=== PATIENT | female | born 1960 | race Native Hawaiian/Other Pacific Islander ===

== ENCOUNTER 2017-08-05 10:47 | Day surgery (SDC) | payer OTHER ==
[2017-08-03 11:01] VITALS: BMI 31.7
[~2017-08-05 10:47] MED LIST: LACTATED RINGERS 1,000 ML IV SCH
[2017-08-05 11:34] VITALS: TEMP 97.5
[2017-08-05] MEDS ORDERED: LIDOCAINE 1% 20 ML VIAL (10MG/ML) FOR IV START INTRADERMA ONE (12:11)
[2017-08-05] MEDS ORDERED: GLYCOPYRROLATE 0.2 MG/ML 2 ML VIAL ONE (12:27)
[2017-08-05] MEDS ORDERED: PROPOFOL 10 MG/ML 20 ML VIAL IV ONE (12:27)
[2017-08-05] MEDS ORDERED: MIDAZOLAM 2 MG/2 ML VIAL ONE (12:27)
[2017-08-05] MEDS ORDERED: LIDOCAINE 1% INJ 10MG/ML (20 ML MDV) ONE (12:27)
--- NOTE | 2017-08-05 12:36 | P.GSHP ---
History of Present Illness H&P Date: 08/05/17 Chief Complaint: GERD, screening colonoscopy This is a 56-year-old female referred from Za Lopez PA-C. Patient presents today for EGD and screening colonoscopy. She's had issues with GERD. Past Medical History Past Medical History: GERD/Reflux, Hypertension, Neurologic Disorder Additional Past Medical History / Comment(s): SEASONAL ALLERGIES. MIGRAINES. SINUS PROBLEMS History of Any Multi-Drug Resistant Organisms: None Reported Past Surgical History: Section, Cholecystectomy, Hysterectomy, Tonsillectomy Additional Past Surgical History / Comment(s): TEAR DUCT SX. RT EYE SX AGE 11. COLONOSCOPY Past Anesthesia/Blood Transfusion Reactions: Motion Sickness, Postoperative Nausea & Vomiting (PONV) Smoking Status: Former smoker - Past Family History Sister(s) Family Medical History: Cancer Medications and Allergies Home Medications Medication Instructions Recorded Confirmed Type Biotin 10,000 mcg PO DAILY 08/03/17 08/05/17 History Black Cohosh 540 mg PO DAILY 08/03/17 08/05/17 History Cetirizine HCl [Zyrtec] 10 mg PO DAILY 08/03/17 08/05/17 History Cholecalciferol [Vitamin D3] 1,000 unit PO DAILY 08/03/17 08/05/17 History Losartan/Hydrochlorothiazide 1 each PO DAILY 08/03/17 08/05/17 History [Losartan-Hctz 50-12.5 mg Tab] Naproxen Sodium 220 mg PO DAILY PRN 08/03/17 08/05/17 History Olopatadine HCl [Pataday] 1 drop BOTH EYES BID 08/03/17 08/05/17 History Ranitidine HCl 150 mg PO BID 08/03/17 08/05/17 History Rizatriptan Benzoate [Rizatriptan] 10 mg PO DAILY PRN 08/03/17 08/05/17 History Allergies Allergy/AdvReac Type Severity Reaction Status Date / Time prednisone AdvReac MIGRAINE Verified 08/05/17 11:34 Surgical - Exam Vital Signs Temp Pulse Resp BP Pulse Ox 97.5 F L 81 16 116/79 99 08/05/17 11:33 08/05/17 11:33 08/05/17 11:33 08/05/17 11:33 08/05/17 11:33 - General well developed, no distress - Eyes PERRL - ENT normal pinna - Neck no masses - Respiratory normal expansion - Cardiovascular Rhythm: regular - Abdomen Abdomen: soft, non tender Assessment and Plan Plan: GERD. We'll perform EGD. We'll also perform screening colonoscopy.
--- NOTE | 2017-08-05 12:57 | P.OP ---
Date of Procedure: 08/05/17 Preoperative Diagnosis: GERD Screening colonoscopy Postoperative Diagnosis: Antral gastritis Hiatal hernia Diverticulosis Rectal polyp Procedure(s) Performed: EGD Colonoscopy Implants: Anesthesia: MAC Surgeon: Navi Minor Pathology: other (Rectum, antrum, esophagus) Condition: stable Disposition: PACU Indications for Procedure: Operative Findings: Description of Procedure: The patient's placed on the endoscopy table in the lateral position. She received IV sedation. The gastroscope placed oropharynx passed in the esophagus into the stomach. Scope was then placed through the pylorus. The first and second portion of the duodenum appeared normal. Scope was then brought back into the antrum. This appeared mildly inflamed. A biopsies performed. Scope was then retroflexed and the remainder of the stomach appeared normal. There was a hiatal hernia seen. The hiatal hernia was moderate in size. The distal esophagus appeared mildly inflamed a biopsies performed. The proximal esophagus appeared normal. Scope was withdrawn for patient.
[2017-08-05 13:30] VITALS: BP 118/80; PULSE 78; RESP 18
--- NOTE | 2017-08-20 05:18 | CDI ---
Documentation Clarification OP Dear Dr. Minor, Please provide clarification regarding whether the colonoscopy was actually performed. Under Preoperative Diagnosis a screening colonoscopy is listed and under postoperative diagnosis diverticulosis and a rectal polyp are listed. However, nothing is dictated in the body of the report that indicates the colonoscopy was performed. PLEASE RESPOND TO THIS QUERY BY DICTATING AN ADDENDUM TO YOUR PROCEDURE NOTE. Thank you for your assistance, CAROLINE Brooks If you have any questions, please contact Defensive Secondary Coach, Scarlett Christianson at [phone] [facility]
== END 2017-08-05 13:59 | disposition home or self-care (01) ==
LOC: ORWHC2ENDO 10:47
PROVIDERS: ATTEND Surgery
DX: Z12.11 Encounter for screening for malignant neoplasm of colon (principal); K29.50 Unspecified chronic gastritis without bleeding; K21.0 Gastro-esophageal reflux disease with esophagitis; K44.9 Diaphragmatic hernia without obstruction or gangrene; K62.1 Rectal polyp; K57.90 Diverticulosis of intestine, part unspecified, without perforation or abscess without bleeding; Z87.891 Personal history of nicotine dependence; I10 Essential (primary) hypertension; G43.909 Migraine, unspecified, not intractable, without status migrainosus; Z79.899 Other long term (current) drug therapy; Z88.8 Allergy status to other drugs, medicaments and biological substances
CPT/HCPCS: 88305; 88342; 45380; 43239; J2250; J2001; J2704

== ENCOUNTER 2017-10-06 06:08 | Inpatient (IN) | payer OTHER ==
[2017-09-29 12:27] VITALS: BMI 31.1
[~2017-10-06 06:08] MED LIST changes: +HEPARIN SODIUM,PORCINE 5,000 UNIT/ML 1 ML VIAL SQ ONE; -LACTATED RINGERS 1,000 ML IV SCH; +ceFAZolin IN SWFI 2 GM/20 ML SYRINGE IVP ONE
[2017-10-06] MEDS ORDERED: SCOPOLAMINE 1.5MG/72HR PATCH TRANSDERM ONE (06:14)
[2017-10-06] MEDS ORDERED: MIDAZOLAM 2 MG/2 ML VIAL IV PRN (06:14)
[2017-10-06] MEDS ORDERED: LIDOCAINE 1% 20 ML VIAL (10MG/ML) FOR IV START INTRADERMA PRN (06:14)
[2017-10-06] MEDS ORDERED: ONDANSETRON 4 MG/2 ML VIAL IVP ONE (06:14)
[2017-10-06] MEDS: LACTATED RINGERS 1,000 ML IV SCH (07:17)
--- NOTE | 2017-10-06 07:46 | P.GSHP ---
History of Present Illness H&P Date: 10/06/17 Chief Complaint: GERD This is a 56-year-old female referred from Dr. Yolanda Herrera.The patient has had long-standing problems with reflux esophagitis. The patient underwent recent EGD is found have evidence of esophagitis. Patient has been well informed on the procedure of laparoscopic Frida fundoplication. The patient is aware the risk of the conversion to the open procedure, risk of injury to the stomach, liver and spleen. The patient is also a risk of recurrent GERD and dysphagia symptoms. The patient understands there is a postoperative diet of full liquids for 2 weeks after surgery. Past Medical History Past Medical History: Asthma, GERD/Reflux, Hypertension, Neurologic Disorder, Osteoarthritis (OA) Additional Past Medical History / Comment(s): SEASONAL ALLERGIES. MIGRAINES. SINUS PROBLEMS History of Any Multi-Drug Resistant Organisms: None Reported Past Surgical History: Section, Cholecystectomy, Hysterectomy, Tonsillectomy, Tubal Ligation Additional Past Surgical History / Comment(s): TEAR DUCT SX. RT EYE SX AGE 11. COLONOSCOPY Past Anesthesia/Blood Transfusion Reactions: Motion Sickness, Postoperative Nausea & Vomiting (PONV) Past Psychological History: No Psychological Hx Reported Smoking Status: Former smoker Past Alcohol Use History: Rare Additional Past Alcohol Use History / Comment(s): QUIT SMOKING 1999, smoked for 20-25 yrs on and off. Past Drug Use History: None Reported - Past Family History Sister(s) Family Medical History: Cancer Medications and Allergies Home Medications Medication Instructions Recorded Confirmed Type Biotin 5,000 mcg PO DAILY 08/03/17 10/06/17 History Black Cohosh 540 mg PO DAILY 08/03/17 10/06/17 History Cetirizine HCl [Zyrtec] 10 mg PO DAILY 08/03/17 10/06/17 History Cholecalciferol [Vitamin D3] 1,000 unit PO DAILY 08/03/17 10/06/17 History Losartan/Hydrochlorothiazide 1 each PO 1930 08/03/17 10/06/17 History [Losartan-Hctz 50-12.5 mg Tab] Naproxen Sodium 220 mg PO DAILY PRN 08/03/17 10/06/17 History Ranitidine HCl 150 mg PO BID 08/03/17 10/06/17 History Rizatriptan Benzoate [Rizatriptan] 10 mg PO DAILY PRN 08/03/17 10/06/17 History Albuterol Inhaler [Ventolin Hfa 1 - 2 puff INHALATION Q4-6H PRN 09/29/17 History Inhaler] Loteprednol Etabonate [Alrex] 1 drop BOTH EYES BID 09/29/17 10/06/17 History Acetaminophen Tab [Tylenol Tab] 500 mg PO Q4H 10/06/17 10/06/17 History Allergies Allergy/AdvReac Type Severity Reaction Status Date / Time prednisone AdvReac MIGRAINE Verified 10/06/17 06:44 Surgical - Exam Vital Signs Temp Pulse Resp BP Pulse Ox 96.9 F L 80 18 122/77 99 10/06/17 06:58 10/06/17 06:58 10/06/17 06:58 10/06/17 06:58 10/06/17 06:58 - General well developed - Eyes PERRL - ENT normal pinna - Neck no masses - Respiratory normal expansion - Cardiovascular Rhythm: regular - Abdomen Abdomen: soft, non tender Assessment and Plan Assessment: GERD. We will perform laparoscopic Frida fundal plication.
[2017-10-06] MEDS ORDERED: MIDAZOLAM 2 MG/2 ML VIAL ONE (07:49)
[2017-10-06] MEDS ORDERED: LIDOCAINE 1% INJ 10MG/ML (20 ML MDV) ONE (07:49)
[2017-10-06] MEDS ORDERED: ROCURONIUM BROMIDE 10 MG/ML 10 ML VIAL IV ONE (07:49)
[2017-10-06] MEDS ORDERED: NEOSTIGMINE 1 MG/ML 10 ML VIAL ONE (07:49)
[2017-10-06] MEDS ORDERED: fentaNYL (PF) 50 MCG/ML 2 ML AMP ONE (07:49)
[2017-10-06] MEDS ORDERED: GLYCOPYRROLATE 0.2 MG/ML 2 ML VIAL ONE (07:49)
[2017-10-06] MEDS ORDERED: KETOROLAC 30 MG/ML 1 ML VIAL ONE (07:49)
[2017-10-06] MEDS ORDERED: SUCCINYLCHOLINE CHLORIDE 100 MG/5 ML SYR IV ONE (07:49)
[2017-10-06] MEDS ORDERED: PROPOFOL 10 MG/ML 20 ML VIAL IV ONE (07:49)
[2017-10-06] MEDS ORDERED: BUPIVACAINE (PF) 0.25% 30 ML VIAL SQ ONE (08:20)
[2017-10-06] MEDS ORDERED: ONDANSETRON 4 MG/2 ML VIAL IVP PRN (08:52)
--- NOTE | 2017-10-06 09:11 | P.OP ---
Date of Procedure: 10/06/17 Preoperative Diagnosis: GERD Postoperative Diagnosis: GERD Procedure(s) Performed: Laparoscopic Frida fundal plication Anesthesia: ALEXA Surgeon: Navi Minor Estimated Blood Loss (ml): 5 Pathology: none sent Condition: stable Disposition: PACU Description of Procedure: Harmonic Frida
[2017-10-06] MEDS: HYDROmorphone 1 MG/ML 1 ML SYRINGE IVP PRN ×4 (09:22→18:44)
[2017-10-06] MEDS: FAMOTIDINE 20 MG/2 ML VIAL IV SCH ×2 (18:10→20:21)
[2017-10-06] MEDS: ENOXAPARIN 40 MG/0.4 ML SYRINGE SQ SCH (18:10)
[2017-10-06] MEDS: D5-0.45% NACL WITH KCL 20MEQ/L 1,000 ML IV SCH (20:09)
[2017-10-07] MEDS: HYDROmorphone 1 MG/ML 1 ML SYRINGE IVP PRN (00:04)
[2017-10-07] MEDS: D5-0.45% NACL WITH KCL 20MEQ/L 1,000 ML IV SCH ×3 (03:27→09:40)
[2017-10-07] MEDS: FAMOTIDINE 20 MG/2 ML VIAL IV SCH (08:54)
[2017-10-07] MEDS: ENOXAPARIN 40 MG/0.4 ML SYRINGE SQ SCH (08:55)
[2017-10-07 08:59] VITALS: BP 111/67; PULSE 72; RESP 20; TEMP 98
--- NOTE | 2017-10-07 09:32 | FL ---
EXAMINATION TYPE: FL esophagus cervic/pharynx DATE OF EXAM: 10/07/2017 HISTORY: Post Frida fundoplication COMPARISON: NONE TECHNIQUE: A single contrast esophagram is performed utilizing barium with fluoroscopy, 41 seconds a nd 50 mL of Omnipaque 350 utilized. 18 images were saved. FINDINGS: The esophagus shows normal motility and emptying into the stomach. Contrast is noted to readily flow through the gastroesophageal junction with no evidence of postoperative stricture or leak. No eviden ce of hiatal hernia or stricture noted. No significant gastroesophageal reflux was seen during real t trista performance of this study. IMPRESSION: No evidence of postoperative stricture or leak.
[2017-10-07] MEDS: LACTATED RINGERS 1,000 ML IV SCH (09:39)
[2017-10-07] MEDS ORDERED: ACETAMINOPHEN TAB 325 MG TAB PO PRN (09:43)
--- NOTE | 2017-10-07 09:48 | P.DS ---
Providers Date of admission: 10/06/17 06:08 Expected date of discharge: 10/07/17 Attending physician: Navi Minor Primary care physician: Yolanda Herrera [facility] Course: 56-year-old female with a long-standing problem with reflux esophagitis. Patient underwent a recent EGD showed evidence of esophagitis. Patient presented on an elective basis to undergo laparoscopic Frida fundoplication. The procedure was done on October 06. Postop there were no events. Patient was aware of the need to be on a full liquid diet for 2 weeks after surgery. The esophagram showed no evidence of a postop stricture or leak. Impression discharge diagnosis Symptomatic reflux esophagitis A recent EGD with evidence of esophagitis Postop laparoscopic Frida fundoplication The above impression and plan of care have been discussed and directed by signing physician. Aracely Flanagan nurse practitioner acting as scribe for signing physician. Plan - Discharge Summary Discharge Rx Participant: Yes New Discharge Prescriptions: New Docusate [Colace] 100 mg PO BID #20 capsule HYDROcodone/APAP 7.5-325MG [Hill[place] 7.5] 1 each PO Q4H PRN #30 tab PRN Reason: Pain Continue Cholecalciferol [Vitamin D3] 1,000 unit PO DAILY Ranitidine HCl 150 mg PO BID Cetirizine HCl [Zyrtec] 10 mg PO DAILY Rizatriptan Benzoate [Rizatriptan] 10 mg PO DAILY PRN PRN Reason: Migraine Headache Naproxen Sodium 220 mg PO DAILY PRN PRN Reason: Pain Losartan/Hydrochlorothiazide [Losartan-Hctz 50-12.5 mg Tab] 1 tab PO DAILY@ 1930 Black Cohosh 540 mg PO DAILY Loteprednol Etabonate [Alrex] 1 drop BOTH EYES BID Albuterol Inhaler [Ventolin Hfa Inhaler] 1 - 2 puff INHALATION RT-Q4H PRN PRN Reason: Shortness Of Breath Acetaminophen Tab [Tylenol] 500 mg PO Q4H PRN PRN Reason: Pain Biotin 5,000 mcg PO DAILY Discharge Medication List Black Cohosh 540 mg PO DAILY 08/03/17 [History] Cetirizine HCl [Zyrtec] 10 mg PO DAILY 08/03/17 [History] Cholecalciferol [Vitamin D3] 1,000 unit PO DAILY 08/03/17 [History] Losartan/Hydrochlorothiazide [Losartan-Hctz 50-12.5 mg Tab] 1 tab PO DAILY@1930 08/03/17 [History] Naproxen Sodium 220 mg PO DAILY PRN 08/03/17 [History] Ranitidine HCl 150 mg PO BID 08/03/17 [History] Rizatriptan Benzoate [Rizatriptan] 10 mg PO DAILY PRN 08/03/17 [History] Albuterol Inhaler [Ventolin Hfa Inhaler] 1 - 2 puff INHALATION RT-Q4H PRN [History] Loteprednol Etabonate [Alrex] 1 drop BOTH EYES BID 09/29/17 [History] Acetaminophen Tab [Tylenol] 500 mg PO Q4H PRN 10/06/17 [History] Biotin 5,000 mcg PO DAILY 10/06/17 [History] Docusate [Colace] 100 mg PO BID #20 capsule 10/06/17 [Rx] HYDROcodone/APAP 7.5-325MG [Hill[place] 7.5] 1 each PO Q4H PRN #30 tab 10/06/17 [Rx] Follow up Appointment(s)/Referral(s): Navi Minor MD [STAFF PHYSICIAN] - 2 Weeks Activity/Diet/Wound Care/Special Instructions: To maintain full liquid diet for 2 weeks after surgery Stopped taking Prilosec Discharge Disposition: HOME SELF-CARE
== END 2017-10-07 10:24 | disposition home or self-care (01) | DRG 328 ==
LOC: 2ORWHC 06:08 → 6PED 09:02
PROVIDERS: ADMIT Surgery; ATTEND Surgery
PROC: 0DV44ZZ Restriction of Esophagogastric Junction, Percutaneous Endoscopic Approach (ICD-10-PCS; principal; 2017-10-06 09:00)
DX: K21.0 Gastro-esophageal reflux disease with esophagitis (principal); I10 Essential (primary) hypertension; J45.909 Unspecified asthma, uncomplicated; M19.90 Unspecified osteoarthritis, unspecified site; J30.2 Other seasonal allergic rhinitis; Z88.8 Allergy status to other drugs, medicaments and biological substances; Z79.899 Other long term (current) drug therapy; Z87.891 Personal history of nicotine dependence; Z80.9 Family history of malignant neoplasm, unspecified; Z90.710 Acquired absence of both cervix and uterus; Z98.51 Tubal ligation status; Z90.49 Acquired absence of other specified parts of digestive tract
CPT/HCPCS: 74210

== ENCOUNTER → 2019-04-25 | Outpatient (CLI) | payer OTHER ==
--- NOTE | 2019-04-25 10:46 | FL ---
ESOPHOGRAM. HISTORY: . H/o lap malik six months ago (Sep 2018). Dr. Underwood 5 oz EZ Paque. FL time 51 sec. Esophagram was performed per the single contrast technique. The patient swallowed barium and efferve scent crystals without difficulty or delay. Esophageal peristalsis and motility appear to be within normal limits. There is no evidence for filling defect, mass or diverticulum. No recurrent hiatal hernia seen. IMPRESSION: No recurrent hiatal hernia identified.
== END | disposition home or self-care (01) ==
LOC: RADFLWHC 09:59
PROVIDERS: ATTEND Family Medicine
DX: K21.9 Gastro-esophageal reflux disease without esophagitis (principal); R10.13 Epigastric pain
CPT/HCPCS: 74220

== ENCOUNTER → 2019-07-20 | Outpatient (CLI) | payer OTHER ==
--- NOTE | 2019-07-23 14:57 | MM ---
Reason for exam: screening (asymptomatic). Last mammogram was performed 9 years and 5 months ago. History: Patient is postmenopausal. Benign excisional biopsy of the left breast, 2013. Took estrogen for 1 year beginning at age 43. Physical Findings: A clinical breast exam by your physician is recommended on an annual basis and results should be correlated with mammographic findings. MG 3D Screening Mammo W/Cad Bilateral CC and MLO view(s) were taken. Prior study comparison: August 02, 2017, mammogram. February 04, 2010, bilateral digital screening mammogram. May 28, 2008, bilateral digital screening mammogram. Finding: There are new round, grouped/clustered calcifications in the upper inner quadrant of the left breast 6cm from the nipple. New finding since August 02, 2017. ASSESSMENT: Incomplete: need additional imaging evaluation, BI-RAD 0 RECOMMENDATION: Special view mammogram of the left breast. [facility] will attempt to contact patient to return for supplemental views.
== END | disposition home or self-care (01) ==
LOC: RADMAMWWP 11:14
PROVIDERS: ATTEND Family Medicine
DX: Z12.31 Encounter for screening mammogram for malignant neoplasm of breast (principal)
CPT/HCPCS: 77063; 77067

== ENCOUNTER → 2019-08-08 | Outpatient (CLI) | payer OTHER ==
--- NOTE | 2019-08-08 11:33 | MM ---
Reason for exam: additional evaluation requested from abnormal screening. Last mammogram was performed 1 month ago. History: Patient is postmenopausal. Benign excisional biopsy of the left breast, 2013. Took estrogen for 1 year beginning at age 43. Physical Findings: Nurse did not find any significant physical abnormalities on exam. MG 3D Work Up W/Cad LT CC, ML, CC with magnification, and ML with magnification view(s) were taken of the left breast. Prior study comparison: July 20, 2019, bilateral MG 3d screening mammo w/cad. August 02, 2017, mammogram. The breast tissue is heterogeneously dense. This may lower the sensitivity of mammography. There are stable left masses in the central lower breast and upper outer quadrant middle depth. There is a 2mm group of calcifications in the upper inner quadrant at middle depth that are new from 2017 and heterogeneous. Biopsy recommended. Left biopsy marker. These results were verbally communicated with the patient and result sheet given to the patient on 08/08/19. ASSESSMENT: Suspicious, BI-RAD 4 RECOMMENDATION: Stereotactic core biopsy of the left breast. Called Dr. Herrera with mammographic findings and has scheduled an appointment for the patient for 08/30/19 at 12:[address] Angel. Biopsy scheduled for 08/31/19 at 8:00. PRELIMINARY REPORT CALLED AND FAXED TO DR. ANGEL ON 08/08/19.
== END | disposition home or self-care (01) ==
LOC: RADMAMWWP 09:56
PROVIDERS: ATTEND Family Medicine
DX: R92.8 Other abnormal and inconclusive findings on diagnostic imaging of breast (principal)
CPT/HCPCS: 77061; 77065

== ENCOUNTER → 2019-08-30 | Outpatient (CLI) | payer OTHER ==
[2019-08-30 12:30] VITALS: BP 119/79; PULSE 83; RESP 18; TEMP 97.6; BMI 29.2
--- NOTE | 2019-08-30 12:56 | P.GSHP ---
History of Present Illness H&P Date: 08/30/19 Chief Complaint: Mammographic abnormality left breast Mildred is a 58-year-old female who underwent a routine mammogram was noted to have an area of microcalcification in the left breast in the upper inner quadrant. She is status post a prior left breast biopsy which was benign approximately 2013 at [facility]. The [place] [address]. Additional views of the left breast were recommended. A 2 mm group of calcifications in the upper inner quadrant were identified and stereotactic core biopsy was recommended. The patient does not feel any lumps or masses in her breasts. The patient does not give any history of any recent trauma or infection in the breast. She did have a prior left breast ultrasound-guided core biopsy approximately 5 years ago. The patient states that she has had intermittent shooting pain in the left breast beginning from the upper outer quadrant area and shooting through the breast. She is uncertain as to what may precipitate this. The pain is not cyclical. She does take black cohosh every day flashes. She has been taking this for 10 years. She drinks approximately 2 cups of coffee per day. She does not eat chocolate. She does not smoke but is exposed to secondhand smoke. Family history: 1. sister: melanoma 2. paternal uncle: colon cancer Hormonal history: Menarche:13 , breast fed: none. age at first :20 menopause: hysterectomy took right ovary at 36, for bleeding BCP: 2 months hormones: Premarin one year at 47, black cohash, premarin vaginal cream for few months last year Surgical history: 1. Hysterectomy and right ovary removed 2. 3. eye surgery right 4. tonsil 5. Hiatal hernia repair 6. gallbladder 7. bilateral tear ducts 8. sinus surgery twice Medical History: 1. HTN 2. asthma 3. back pain Social History: smoke: stopped 2000, 11/29 PPD for 15 years alcohol: none drugs: none - Constitutional Comment: uses black cohash Constitutional: Reports sweats - EENT Eyes: bilateral blurred vision, bilateral pain Ears, nose, mouth and throat: Reports headache, Reports sinus pain, Reports sinus pressure, Reports sore throat - Breasts Breasts: bilateral: as per HPI - Cardiovascular Cardiovascular: Denies chest pain, Denies shortness of breath - Respiratory Comment: asthma - Gastrointestinal Comment: reflux Gastrointestinal: Denies abdominal pain, Denies diarrhea, Denies nausea, Denies vomiting - Genitourinary (Female) Genitourinary: Denies dysuria, Denies hematuria - Menstruation Menstruation: Reports post hysterectomy - Musculoskeletal Comment: osteoarthritis Degenerative disc disease Musculoskeletal: Denies myalgias - Integumentary Integumentary: Denies pruritus, Denies rash - Neurological Neurological: Denies numbness, Denies weakness - Psychiatric Psychiatric: Denies anxiety, Denies depression - Endocrine Endocrine: Denies fatigue, Denies weight change - Hematologic/Lymphatic Comment: none - Allergic/Immunologic Allergic/Immunologic: Reports seasonal allergies Past Medical History Past Medical History: Asthma, GERD/Reflux, Hypertension, Neurologic Disorder, Osteoarthritis (OA) Additional Past Medical History / Comment(s): SEASONAL ALLERGIES. MIGRAINES. SINUS PROBLEMS History of Any Multi-Drug Resistant Organisms: None Reported Past Surgical History: Section, Cholecystectomy, Hysterectomy, Tonsillectomy, Tubal Ligation Additional Past Surgical History / Comment(s): TEAR DUCT SX. RT EYE SX AGE 11. COLONOSCOPY Past Anesthesia/Blood Transfusion Reactions: Motion Sickness, Postoperative Nausea & Vomiting (PONV) Past Psychological History: No Psychological Hx Reported Smoking Status: Former smoker Past Alcohol Use History: Rare Additional Past Alcohol Use History / Comment(s): QUIT SMOKING 1999, smoked for 20-25 yrs on and off. Past Drug Use History: None Reported - Past Family History Sister(s) Family Medical History: Cancer Medications and Allergies Home Medications Medication Instructions Recorded Confirmed Type Black Cohosh 540 mg PO DAILY 08/03/17 08/20/19 History Cetirizine HCl [Zyrtec] 10 mg PO DAILY 08/03/17 08/20/19 History Cholecalciferol [Vitamin D3 (25 1,000 unit PO DAILY 08/03/17 08/20/19 History Mcg = 1000 Iu)] Naproxen Sodium 220 mg PO DAILY PRN 08/03/17 08/20/19 History Ranitidine HCl 150 mg PO BID 08/03/17 08/20/19 History Rizatriptan Benzoate [Rizatriptan] 10 mg PO DAILY PRN 08/03/17 08/20/19 History Albuterol Inhaler [Ventolin Hfa 1 - 2 puff INHALATION RT-Q4H PRN 09/29/17 08/20/19 History Inhaler] Acetaminophen Tab [Tylenol] 500 mg PO Q4H PRN 10/06/17 08/20/19 History Biotin 5,000 mcg PO DAILY 10/06/17 08/20/19 History Methocarbamol [Robaxin] 500 mg PO DAILY 08/20/19 08/20/19 History amLODIPine BESYLATE [Norvasc] 5 mg PO DAILY 08/20/19 08/20/19 History Allergies Allergy/AdvReac Type Severity Reaction Status Date / Time prednisone AdvReac MIGRAINE Verified 08/30/19 12:26 Surgical - Exam Vital Signs Temp Pulse Resp BP Pulse Ox 97.6 F 83 18 119/79 97 08/30/19 12:27 08/30/19 12:27 08/30/19 12:27 08/30/19 12:27 08/30/19 12:27 - General well developed, well nourished, no distress - Eyes normal ocular movement - ENT no hearing loss, no congestion - Neck no masses, trachea midline - Respiratory normal respiratory effort, clear to auscultation - Cardiovascular Rhythm: regular Heart Sounds: normal: S1, S2 - Abdomen Abdomen: soft, non tender, no guarding, no rigid, no rebound - Integumentary normal turgor - Neurologic no disoriented, no combative - Musculoskeletal normal gait, normal posture - Psychiatric oriented to time, oriented to person, oriented to place, speech is normal, memory intact breast exam: bra 40DD Right breast: Multiple positional exam fibrocystic changes, no dominant masses or nodules of concern right axilla: No adenopathy of concern Left breast: Multiple positional exam no dominant masses or nodules of concern Left axilla: No adenopathy of concern Results Mammographic reports reviewed Assessment and Plan Assessment: Impression: 1. Mammographic abnormality left breast 2. Fibrocystic breast changes 3. Family history of cancer 4. Asthma 5. Hypertension 6. Back pain 7. Intermittent left breast pain 8. Status post prior left breast biopsy/benign Risks and benefits are discussed regarding ster0-core biopsy discussed with the patient. Additionally we have discussed the black cohosh and the patient is going to stop this until after her biopsy is done. We've also discussed that the caffeine and secondhand smoke may be exacerbating breast pain. She is going to consider breast modifications of these. A book on breast pain is given to the patient. Plan: 1. Left breast stereotactic core biopsy 2. Breast pain issues addressed including caffeine, secondhand smoke, and the possibility of exacerbation with the black: 3. Medical management of medical conditions 4. Difficulty with doing stereotactic core biopsy secondary to back pain and osteoarthritis discussed with the patient Patient understands risks and benefits of stereotactic core biopsy and wishes to proceed. This is scheduled for tomorrow. Cc: DR. Yolanda Herrera
== END ==
LOC: WWCWWP 11:36
PROVIDERS: ATTEND Surgery
DX: Z53.9 Procedure and treatment not carried out, unspecified reason (principal)

== ENCOUNTER → 2019-08-31 | Day surgery (SDC) | payer OTHER ==
[2019-08-31 07:25] VITALS: RESP 16; BMI 29.2
--- NOTE | 2019-08-31 08:53 | P.OP ---
Date of Procedure: 08/31/19 Preoperative Diagnosis: Left breast microcalcifications of concern Postoperative Diagnosis: Same Procedure(s) Performed: Left breast stereotactic core biopsy Anesthesia: local Surgeon: Toya Angel Pathology: other Condition: stable Disposition: same day Indications for Procedure: Microcalcifications of concern left breast Operative Findings: Radiographic specimen reveals microcalcifications of concern Description of Procedure: The patient is a 58-year-old female who presents with radiographic abnormality in the left breast. There is a 2 mm group of calcifications in the upper inner quadrant at middle depth. These were felt to be heterogeneous and removed from 2017. Stay tactic core biopsy was recommended. Risks and benefits were discussed with the patient she understood and wished to proceed. Patient was taken to stereotactic core room and positioned on the stereo table. A CC from above approach was utilized. A venereal disease control head film was obtained. The area of concern was identified. The area was targeted. The breast was prepped using Betadine. 1% lidocaine was used to anesthetize the skin 10 mL, and it did additional 10 mL of 1% lidocaine with epinephrine was used for the anesthesia and the deeper breast tissue. The patient was taken to the correct coordinates. Prefire films were obtained showing the needle in the correct location. Posterior films were obtained again showing the needle in the correct location. A 9-gauge vacuum-assisted core biopsy needle was utilized to obtain 7 samples. The specimen was then radiographs. Microcalcifications of concern were noted in the specimen. A secure marked top what job titles mean was placed. The patient tolerated the procedure in stable condition. Specimen was sent to pathology. The patient will follow with Dr. Donaldson next week.
[2019-08-31 09:12] VITALS: BP 124/78; PULSE 78; TEMP 98.1
--- NOTE | 2019-08-31 12:10 | MM ---
EXAMINATION TYPE: MG stereo VAD BX LT DATE OF EXAM: 08/31/2019 COMPARISON: Diagnostic left mammogram dated 08/08/2017 CLINICAL HISTORY: Indeterminate left breast calcifications for which stereotactic guided biopsy was recommended TECHNIQUE: Stereotactic guided core biopsy of left breast. FINDINGS: The procedure of stereotactic guided core biopsy was explained to the patient. Benefits, alternatives, and risks were discussed. An informed consent was then obtained. Preprocedural timeout was performed. [facility] Shortness pathway was CC from above approach. I performed the localization, then surgeon, Dr. Mendoza Bustillos performed the remainder of the procedure. A vacuum assisted biopsy gun was used to obtain multiple core samples. The patient tolerated the procedure well without any immediate complication. The patient was kept in the radiology department for short stay after the procedure and then discharged home in stable condition. Targeted calcifications are identified in specimen mammogram. Post biopsy mammogram shows the clip to appear in satisfactory position relative to the targeted area of concern on the preprocedure images. IMPRESSION: SUCCESSFUL, UNCOMPLICATED STEREOTACTIC GUIDED CORE BIOPSY OF AREA A 2 MM GROUP OF INDETERMINATE CALCIFICATIONS IN THE UPPER INNER QUADRANT OF THE LEFT BREAST THAT ARE NEW FROM THE PRIOR OF 2016, FULL PATHOLOGY RESULTS TO FOLLOW. Pathology Results: Benign LEFT BREAST, STEREOTACTIC CORE BIOPSY: Fibrocystic changes including fibrosis, small cysts and calcifications. Recommendation Follow up mammogram of the left breast in 6 months. CORINAD
== END ==
LOC: RADMAMWWP 06:45
PROVIDERS: ATTEND Surgery
DX: N60.32 Fibrosclerosis of left breast (principal); N64.89 Other specified disorders of breast
CPT/HCPCS: 88305; 19081; A4648; J2001

== ENCOUNTER → 2019-09-07 | Outpatient (CLI) | payer OTHER ==
[2019-09-07 10:58] VITALS: BP 123/85; PULSE 86; RESP 16; TEMP 97.8; BMI 29.2
--- NOTE | 2019-09-07 11:11 | P.PN ---
Subjective Progress Note Date: 09/07/19 Principal diagnosis: stero core biopsy results Mildred is a 58-year-old female who underwent a routine mammogram was noted to have an area of microcalcification in the left breast in the upper inner quadrant. She is status post a prior left breast biopsy which was benign approximately 2013 at [facility]. The [place] [address]. Additional views of the left breast were recommended. A 2 mm group of calcifications in the upper inner quadrant were identified and stereotactic core biopsy was recommended. The patient does not feel any lumps or masses in her breasts. The patient does not give any history of any recent trauma or infection in the breast. She did have a prior left breast ultrasound-guided core biopsy approximately 5 years ago. The patient states that she has had intermittent shooting pain in the left breast beginning from the upper outer quadrant area and shooting through the breast. She is uncertain as to what may precipitate this. The pain is not cyclical. She does take black cohosh every day flashes. She has been taking this for 10 years. She drinks approximately 2 cups of coffee per day. She does not eat chocolate. She does not smoke but is exposed to secondhand smoke. The patient is status post stereotactic core biopsy of the left breast [place] [id number]. Pathology reveals fibrocystic changes. The patient has no complaints related to the procedure. Family history: 1. sister: melanoma 2. paternal uncle: colon cancer Hormonal history: Menarche:13 , breast fed: none. age at first :20 menopause: hysterectomy took right ovary at 36, for bleeding BCP: 2 months hormones: Premarin one year at 47, black cohash, premarin vaginal cream for few months last year Surgical history: 1. Hysterectomy and right ovary removed 2. 3. eye surgery right 4. tonsil 5. Hiatal hernia repair 6. gallbladder 7. bilateral tear ducts 8. sinus surgery twice Medical History: 1. HTN 2. asthma 3. back pain Social History: smoke: stopped 2000, 11/29 PPD for 15 years alcohol: none drugs: none - Constitutional Comment: uses black cohash Constitutional: Reports sweats - EENT Eyes: bilateral blurred vision, bilateral pain Ears, nose, mouth and throat: Reports headache, Reports sinus pain, Reports sinus pressure, Reports sore throat - Breasts Breasts: bilateral: as per HPI - Cardiovascular Cardiovascular: Denies chest pain, Denies shortness of breath - Respiratory Comment: asthma - Gastrointestinal Comment: reflux Gastrointestinal: Denies abdominal pain, Denies diarrhea, Denies nausea, Denies vomiting - Genitourinary (Female) Genitourinary: Denies dysuria, Denies hematuria - Menstruation Menstruation: Reports post hysterectomy - Musculoskeletal Comment: osteoarthritis Degenerative disc disease Musculoskeletal: Denies myalgias - Integumentary Integumentary: Denies pruritus, Denies rash - Neurological Neurological: Denies numbness, Denies weakness - Psychiatric Psychiatric: Denies anxiety, Denies depression - Endocrine Endocrine: Denies fatigue, Denies weight change - Hematologic/Lymphatic Comment: none - Allergic/Immunologic Allergic/Immunologic: Reports seasonal allergies Past Medical History Past Medical History: Asthma, GERD/Reflux, Hypertension, Neurologic Disorder, Osteoarthritis (OA) Additional Past Medical History / Comment(s): SEASONAL ALLERGIES. MIGRAINES. SINUS PROBLEMS History of Any Multi-Drug Resistant Organisms: None Reported Past Surgical History: Section, Cholecystectomy, Hysterectomy, Tonsillectomy, Tubal Ligation Additional Past Surgical History / Comment(s): TEAR DUCT SX. RT EYE SX AGE 11. COLONOSCOPY Past Anesthesia/Blood Transfusion Reactions: Motion Sickness, Postoperative Nausea & Vomiting (PONV) Past Psychological History: No Psychological Hx Reported Smoking Status: Former smoker Past Alcohol Use History: Rare Additional Past Alcohol Use History / Comment(s): QUIT SMOKING 1999, smoked for 20-25 yrs on and off. Past Drug Use History: None Reported Objective - Vital Signs Vital signs: Vital Signs Temp 97.8 F 09/07/19 10:53 Pulse 86 09/07/19 10:53 Resp 16 09/07/19 10:53 BP 123/85 09/07/19 10:53 Pulse Ox 98 09/07/19 10:53 Intake & Output 09/06/19 09/07/19 09/07/19 18:59 06:59 18:59 Weight 70.307 kg - Exam BMI 29.3 - Constitutional General appearance: Present: average body habitus - EENT Eyes: Present: EOMI ENT: Present: hearing grossly normal - Neck Neck: Present: normal ROM - Cardiovascular Rhythm: regular Heart sounds: normal: S1, S2 - Integumentary Integumentary: Present: normal turgor - Musculoskeletal Musculoskeletal: Present: gait normal - Additional findings Additional findings: Left breast colon biopsy site clean and dry no evidence of ecchymosis or hematoma and no evidence of infection Assessment and Plan Assessment: Impression: 1. Patient status post left breast are detected core biopsy pathology benign 2. Fibrocystic breast changes 3. Family history of cancer 4. Asthma 5. Hypertension Plan: 1. Repeat left breast mammogram and physician exam in 6 months time 2. Medical management of medical conditions 3. Patient will consider decreasing caffeine CC: DR. Yolanda Herrera
== END | disposition home or self-care (01) ==
LOC: WWCWWP 10:37
PROVIDERS: ATTEND Surgery
DX: Z53.9 Procedure and treatment not carried out, unspecified reason (principal)

== ENCOUNTER → 2019-12-21 | Outpatient (CLI) | payer OTHER ==
--- NOTE | 2019-12-21 13:40 | XR ---
EXAM TYPE: LUMBAR SPINE X RAY SERIES COMPARISON: NONE HISTORY: Chronic back pain TECHNIQUE: 4 views are submitted. FINDINGS: Alignment is anatomic. The pedicles are intact. The transverse processes are intact. There is no s pondylolysis or spondylolisthesis. Severe facet arthropathy L5-S1. Mild hypertrophic changes at all levels. Surgical clips in the gallbladder fossa. IMPRESSION: 1. Severe facet arthropathy L5-S1..
== END | disposition home or self-care (01) ==
LOC: RADXRMAIN 13:13
PROVIDERS: ATTEND Family Medicine
DX: M46.97 Unspecified inflammatory spondylopathy, lumbosacral region (principal); G89.29 Other chronic pain
CPT/HCPCS: 72110

== ENCOUNTER → 2020-07-04 | Outpatient (CLI) | payer OTHER ==
--- NOTE | 2020-07-08 13:28 | MM ---
Reason for exam: follow-up at short interval from prior study. Last mammogram was performed 11 months ago. History: Patient is postmenopausal. Benign MG stereo VAD BX LT of the left breast, August 31, 2019. Benign excisional biopsy of the left breast, 2013. Took estrogen for 1 year beginning at age 43. Physical Findings: Nurse did not find any significant physical abnormalities on exam. MG Diagnostic Mammo LT w CAD CC and MLO view(s) were taken of the left breast. Prior study comparison: August 08, 2019, left breast MG 3d work up w/cad LT. July 20, 2019, bilateral MG 3d screening mammo w/cad. The breast tissue is heterogeneously dense. This may lower the sensitivity of mammography. Previous mammotome biopsy in the left breast. There is chronic nodularity in the left breast. These results were verbally communicated with the patient and result sheet given to the patient on 07/04/20. ASSESSMENT: Benign, BI-RAD 2 RECOMMENDATION: Follow-up diagnostic mammogram in 1 month. (due for right breast mammogram in 2 weeks)
== END | disposition home or self-care (01) ==
LOC: RADMAMWWP 13:24
PROVIDERS: ATTEND Surgery
DX: R92.8 Other abnormal and inconclusive findings on diagnostic imaging of breast (principal)
CPT/HCPCS: 77065

== ENCOUNTER → 2020-12-23 | Outpatient (CLI) | payer OTHER | END | disposition home or self-care (01) | LOC: LABWHC1 15:38 | PROVIDERS: ATTEND Family Medicine | DX: Z20.822 Contact with and (suspected) exposure to COVID-19 (principal) | CPT/HCPCS: 87502; U0003; C9803; U0005 ==

== ENCOUNTER → 2021-01-05 | Outpatient (CLI) | payer OTHER ==
--- NOTE | 2021-01-05 13:15 | MM ---
Reason for exam: additional evaluation requested from prior study. Last mammogram was performed 6 months ago. History: Patient is postmenopausal. Benign MG stereo VAD BX LT of the left breast, August 31, 2019. Benign excisional biopsy of the left breast, 2013. Took estrogen for 1 year beginning at age 43. Physical Findings: Nurse did not find any significant physical abnormalities on exam. MG Diagnostic Mammo w CAD LATONIA Bilateral CC and MLO view(s) were taken. Prior study comparison: July 04, 2020, left breast MG diagnostic mammo LT w CAD. August 08, 2019, left breast MG 3d work up w/cad LT. There are scattered fibroglandular densities. Previous mammotome biopsy in the left breast. There is chronic nodularity bilaterally. No significant new findings when compared with previous films. These results were verbally communicated with the patient and result sheet given to the patient on 01/05/21. ASSESSMENT: Benign, BI-RAD 2 RECOMMENDATION: Routine screening mammogram of both breasts in 1 year.
== END | disposition home or self-care (01) ==
LOC: RADMAMWWP 11:05
PROVIDERS: ATTEND Family Medicine
DX: R92.8 Other abnormal and inconclusive findings on diagnostic imaging of breast (principal)
CPT/HCPCS: 77066

== ENCOUNTER → 2021-04-30 | Outpatient (CLI) | payer OTHER ==
--- NOTE | 2021-04-30 13:35 | CT ---
EXAMINATION TYPE: CT abdomen pelvis w con DATE OF EXAM: 04/30/2021 COMPARISON: 11/20/2013 INDICATION: Left sided abdominal pain. DLP: 1329 mGycm, Automated exposure control for dose reduction was used. CONTRAST: 100 mL of Isovue M300. Study performed with Oral Contrast TECHNIQUE: Axial images were obtained from above the diaphragm to the pubic rami in the axial plane a t 5 mm thick sections. Reconstructed images are reviewed on the computer in the coronal plane. FINDINGS: Limited CT sections are obtained the lung bases. The lung bases are clear. CT ABDOMEN: Liver: Fatty infiltration of liver. No discrete masses are evident. Spleen: Normal Pancreas: Normal Adrenal glands: The adrenal glands are normal. Gallbladder: Normal Kidneys: No masses are evident. No hydronephrosis is present. No cysts are present. Delayed images were obtained through the kidneys, which remain unremarkable. There is a 0.3 cm nonobstructing renal stone in the mid inferior pole left kidney. Nonobstructing superior pole left renal calcification is present measuring 0.4 cm. There may be some mild prominence of the right ureter. Consider recent pas liat of a renal stone. Aorta: Vascular calcification is within the aorta. Inferior vena cava: Normal. CT PELVIS: Loops of bowel within the abdomen and pelvis are normal. There are loops of bowel which are incom pletely distended or lack oral contrast limiting their evaluation. Appendix: An air-filled appendix appears to be present. No dilated tubular structure or inflammatory changes evident. Urinary bladder: Normal. Genitourinary structures: There is a 3.1 cm transverse dimension left ovarian cyst. Right adnexal reg ion is clear. Uterus is absent. Osseous structures: No suspicious lytic or sclerotic lesions are evident. IMPRESSIONS: 1. There is some mild prominence of the right ureter. Consider recent passage of a ureteral stone. N o obstructing etiologies are evident. No hydronephrosis is present. 2. Left ovarian cyst, follow-up is recommended. 3. Nonobstructing left renal stones
== END | disposition home or self-care (01) ==
LOC: RADCTMAIN 11:26
PROVIDERS: ATTEND Family Medicine
DX: N20.0 Calculus of kidney (principal); N83.202 Unspecified ovarian cyst, left side
CPT/HCPCS: 74177; Q9967 ×2

== ENCOUNTER → 2021-05-27 | Outpatient (CLI) | payer OTHER ==
--- NOTE | 2021-05-27 13:28 | FL ---
EXAMINATION TYPE: FL UGI air w esophagus DATE OF EXAM: 05/27/2021 COMPARISON: CT abdomen and pelvis 04/30/2021 barium swallow 04/25/2019 HISTORY: 60-year-old female with right-sided abdominal pain, swelling of the left side, history of Ni ssen fundoplication for hiatal hernia repair in 2017.. TECHNIQUE: A double contrast UGI study is performed. A total of 1 minute 42 seconds of fluoroscopic time was utilized during procedure and multiple images obtained. FINDINGS: There is a questionable vertical linear esophageal web at the proximal thoracic esophagus which does not persist on sequential imaging. The patient is scheduled for upper endoscopy and this area should be evaluated but is considered less likely. Tiny hiatal hernia is seen. Patient has a history of Niss en fundoplication. No evidence of esophageal stricture. Mild tertiary contractions of the distal esop hagus.. The esophagus shows emptying into the stomach. No significant gastroesophageal reflux was see n during real time performance of this study. Valsalva maneuvers were performed. The stomach shows normal distensibility, peristalsis, and mucosal folds. No gross evidence of any ma ss or ulcer disease. The duodenal bulb, sweep, and proximal small bowel loops are unremarkable. IMPRESSION: 1. Questionable vertical linear esophageal web at the proximal thoracic esophagus does not persist on sequential imaging. The patient is scheduled for upper endoscopy. This area should be evaluated but is not considered likely. 2. Tiny hiatal hernia. Patient has a history of Frida fundoplication. 3. Mild tertiary contractions of the distal esophagus. 4. No evidence of gastroesophageal reflux.
== END | disposition home or self-care (01) ==
LOC: RADUSWWP 09:10
PROVIDERS: ATTEND Surgery
DX: K44.9 Diaphragmatic hernia without obstruction or gangrene (principal); K21.9 Gastro-esophageal reflux disease without esophagitis; K31.89 Other diseases of stomach and duodenum
CPT/HCPCS: 74246

== ENCOUNTER 2021-05-28 09:15 | Day surgery (SDC) | payer OTHER ==
[2021-05-26 11:55] VITALS: BMI 29.5
[~2021-05-28 09:15] MED LIST changes: -HEPARIN SODIUM,PORCINE 5,000 UNIT/ML 1 ML VIAL SQ ONE; +LIDOCAINE 1% (10MG/ML) FOR IV START INTRADERMA PRN; -ceFAZolin IN SWFI 2 GM/20 ML SYRINGE IVP ONE
[2021-05-28] MEDS: LACTATED RINGERS 1,000 ML IV SCH ×2 (10:02→11:04)
[2021-05-28 10:06] VITALS: RESP 16; TEMP 97.8
[2021-05-28] MEDS ORDERED: PROPOFOL 10 MG/ML 20 ML VIAL IV ONE (11:04)
[2021-05-28] MEDS ORDERED: LIDOCAINE 1% INJ 10MG/ML (20 ML MDV) ONE (11:04)
--- NOTE | 2021-05-28 11:09 | P.GSHP ---
History of Present Illness H&P Date: 05/28/21 Chief Complaint: GERD This is a 60-year-old female who presents today for EGD. She's had issues with GERD. Past Medical History Past Medical History: Asthma, GERD/Reflux, Hypertension, Osteoarthritis (OA), Skin Disorder Additional Past Medical History / Comment(s): migraines, sinus infections, seasonal allergies, hx hiatal hernia, IBS, osteoporosis, eczema, kidney stones, History of Any Multi-Drug Resistant Organisms: None Reported Past Surgical History: Breast Surgery, Section, Cholecystectomy, Hysterectomy, Tonsillectomy, Tubal Ligation Additional Past Surgical History / Comment(s): TEAR DUCT SX, RT EYE SX AGE 11, malik fundoplication, left breast biopsy, oral surgery Past Anesthesia/Blood Transfusion Reactions: Motion Sickness, Postoperative Nausea & Vomiting (PONV) Smoking Status: Former smoker - Past Family History Sister(s) Family Medical History: Cancer Additional Family Medical History / Comment(s): melanoma Medications and Allergies Home Medications Medication Instructions Recorded Confirmed Type Black Cohosh 540 mg PO DAILY 08/03/17 05/26/21 History Cetirizine HCl [Zyrtec] 10 mg PO DAILY 08/03/17 05/26/21 History Albuterol Inhaler (Mhu) [Ventolin 1 - 2 puff INHALATION RT-Q4H PRN 09/29/17 05/26/21 History Hfa Inhaler (Mhu)] Acetaminophen Tab [Tylenol] 500 mg PO Q4H PRN 10/06/17 05/26/21 History Biotin 10,000 mcg PO DAILY 10/06/17 05/26/21 History amLODIPine BESYLATE [Norvasc] 5 mg PO 1730 08/20/19 05/26/21 History methocarbamoL [Robaxin] 500 mg PO DAILY PRN 08/20/19 05/26/21 History Acetaminophen [Tylenol] 500 mg PO DIRECTED PRN 05/26/21 05/26/21 History Fluticasone Nasal [place] [Flonase 1 spray EA NOSTRIL DAILY PRN 05/26/21 05/26/21 History Nasal [place]] L.acidoph,Paracasei, B.lactis 1 each PO DAILY 05/26/21 05/26/21 History [Probiotic] Magnesium Cap 133 mg PO DAILY 05/26/21 05/26/21 History Naproxen Sodium [Aleve] 220 mg PO Q12HR 05/26/21 05/26/21 History Olopatadine HCl [Pataday] 1 drop BOTH EYES DIRECTED 05/26/21 05/26/21 History Allergies Allergy/AdvReac Type Severity Reaction Status Date / Time prednisone AdvReac MIGRAINE Verified 05/26/21 11:36 Surgical - Exam Vital Signs Temp Pulse Resp BP Pulse Ox 97.8 F 83 16 115/67 97 05/28/21 10:03 05/28/21 10:03 05/28/21 10:03 05/28/21 10:03 05/28/21 10:03 - General well developed, well nourished, no distress - Eyes PERRL - ENT normal pinna - Neck no masses - Respiratory normal expansion - Cardiovascular Rhythm: regular - Abdomen Abdomen: soft, non tender Assessment and Plan Assessment: GERD. We'll perform EGD.
--- NOTE | 2021-05-28 11:14 | P.OP ---
Date of Procedure: 05/28/21 Preoperative Diagnosis: GERD Postoperative Diagnosis: Antral gastritis Hiatal hernia Esophagitis Procedure(s) Performed: EGD Anesthesia: MAC Surgeon: Navi Minor Pathology: other (Antrum, esophagus) Condition: stable Disposition: PACU Description of Procedure: The patient's placed on the endoscopy table in the lateral position. He she received IV sedation. The gastro-placed oropharynx passed in the esophagus and stomach. Scope was placed through the pylorus. The first and second portion of the duodenum. Normal. Scope summer back the antrum this. Mildly inflamed. A biopsies performed. Scope was retroflexed there was a small hiatal hernia. The GE junction was at 38 cm. The distal esophagus. Inflamed. Biopsies performed. The proximal esophagus appeared normal. Scope withdrawn for patient.
[2021-05-28 11:44] VITALS: BP 138/90; PULSE 83
== END 2021-05-28 12:36 | disposition home or self-care (01) ==
LOC: ORWHC2ENDO 09:15
PROVIDERS: ATTEND Surgery
DX: K29.50 Unspecified chronic gastritis without bleeding (principal); K44.9 Diaphragmatic hernia without obstruction or gangrene; K21.00 Gastro-esophageal reflux disease with esophagitis, without bleeding; J45.909 Unspecified asthma, uncomplicated; I10 Essential (primary) hypertension; M19.90 Unspecified osteoarthritis, unspecified site; G43.909 Migraine, unspecified, not intractable, without status migrainosus; J30.2 Other seasonal allergic rhinitis; M81.0 Age-related osteoporosis without current pathological fracture; L30.9 Dermatitis, unspecified; Z87.442 Personal history of urinary calculi; Z98.890 Other specified postprocedural states; Z87.891 Personal history of nicotine dependence; Z80.8 Family history of malignant neoplasm of other organs or systems; Z79.1 Long term (current) use of non-steroidal anti-inflammatories (NSAID); Z79.899 Other long term (current) drug therapy; Z88.8 Allergy status to other drugs, medicaments and biological substances
CPT/HCPCS: 88305; 43239; J2001; J2704

== ENCOUNTER → 2021-10-21 | Outpatient (CLI) | payer OTHER ==
--- NOTE | 2021-10-22 09:48 | XR ---
EXAMINATION TYPE: XR KUB DATE OF EXAM: 10/21/2021 4:26 PM CLINICAL HISTORY: Left-sided kidney stone with pain. TECHNIQUE: Two supine KUB images of the abdomen are obtained. COMPARISON: CT abdomen and pelvis April 30, 2021. FINDINGS: Scattered gas is seen in non-distended small bowel loops. Gas and fecal material is seen in non-distended colon. Cholecystectomy clips are redemonstrated. No definitive nephrolithiasis. Left-s ided pelvic phleboliths. Visualized osseous structures are intact. IMPRESSION: No definitive nephrolithiasis.
== END | disposition home or self-care (01) ==
LOC: RADXRMAIN 16:11
PROVIDERS: ATTEND Nurse Practitioner
DX: N20.0 Calculus of kidney (principal)
CPT/HCPCS: 74018

== ENCOUNTER 2021-10-24 14:20 | Emergency (ER) | payer OTHER ==
[2021-10-24 15:23] VITALS: BP 179/84; PULSE 84; RESP 18; TEMP 97.9
[2021-10-24] MEDS ORDERED: FLUORESCEIN STRIPS 1 MG STRIP RIGHT EYE STA (17:35)
[2021-10-24] MEDS ORDERED: PROPARACAINE 0.5% OPHTH DROPS 15 ML BTL RIGHT EYE STA (17:35)
[2021-10-24] MEDS ORDERED: ERYTHROMYCIN 5 MG/GM OPHTH OINT 3.5 GM TUBE RIGHT EYE STA (17:36)
[2021-10-24] MEDS ORDERED: AMOXIC-POT CLAV 875MG STARTER PACK 2 TAB BTL PO STA (18:17)
--- NOTE | 2021-10-24 18:22 | ED ---
General Adult HPI - General Chief complaint: Eye Problems Stated complaint: Facial Swelling Time Seen by Provider: 10/24/21 17:22 Source: patient Mode of arrival: ambulatory Limitations: no limitations - History of Present Illness Initial comments: 61-year-old female with a past medical history of asthma, hypertension, migraines, sinusitis presents to the emergency room for right eye irritation. Patient states that for about 4 days now she has had erythema and swelling below the right eye. States that she has also had some drainage from the right eye. Patient denies any visual changes. Denies any pain with movement of the eye. Patient denies fevers. Patient she has problems with her sinuses and has been having some congestion and thinks it could be related. States she called her doctor and they told her to come to the emergency room.Patient has no other complaints at this time including shortness of breath, chest pain, abdominal pain, nausea or vomiting, headache, or visual changes. - Related Data Home Medications Medication Instructions Recorded Confirmed Black Cohosh 540 mg PO DAILY 08/03/17 05/26/21 Cetirizine HCl [Zyrtec] 10 mg PO DAILY 08/03/17 05/26/21 Albuterol Inhaler (Mhu) [Ventolin 1 - 2 puff INHALATION RT-Q4H PRN 09/29/17 05/26/21 Hfa Inhaler (Mhu)] Acetaminophen Tab [Tylenol] 500 mg PO Q4H PRN 10/06/17 05/26/21 Biotin [Biotin Disolve] 10,000 mcg PO DAILY 10/06/17 05/26/21 amLODIPine BESYLATE [Norvasc] 5 mg PO 1730 08/20/19 05/26/21 methocarbamoL [Robaxin] 500 mg PO DAILY PRN 08/20/19 05/26/21 Acetaminophen [Tylenol] 500 mg PO DIRECTED PRN 05/26/21 05/26/21 Fluticasone Nasal [place] [Flonase 1 spray EA NOSTRIL DAILY PRN 05/26/21 05/26/21 Nasal [place]] L.acidoph,Paracasei, B.lactis 1 each PO DAILY 05/26/21 05/26/21 [Probiotic] Magnesium Cap 133 mg PO DAILY 05/26/21 05/26/21 Naproxen Sodium [Aleve] 220 mg PO Q12HR 05/26/21 05/26/21 Olopatadine HCl [Pataday] 1 drop BOTH EYES DIRECTED 05/26/21 05/26/21 Previous Rx's Medication Instructions Recorded Amoxicillin/Potassium Clav 1 tab PO Q12HR #20 tab 10/24/21 [Augmentin 875-125 Tablet] Erythromycin Ophth Oint [Romycin 1 applic RIGHT EYE QID 7 Days #1 gm 10/24/21 Ophth Oint] Allergies Allergy/AdvReac Type Severity Reaction Status Date / Time prednisone AdvReac MIGRAINE Verified 10/24/21 15:22 Review of Systems ROS Statement: Those systems with pertinent positive or pertinent negative responses have been documented in the HPI. ROS Other: All systems not noted in ROS Statement are negative. Past Medical History Past Medical History: Asthma, GERD/Reflux, Hypertension, Osteoarthritis (OA), Skin Disorder Additional Past Medical History / Comment(s): migraines, sinus infections, seasonal allergies, hx hiatal hernia, IBS, osteoporosis, eczema, kidney stones, History of Any Multi-Drug Resistant Organisms: None Reported Past Surgical History: Breast Surgery, Section, Cholecystectomy, Hysterectomy, Tonsillectomy, Tubal Ligation Additional Past Surgical History / Comment(s): TEAR DUCT SX, RT EYE SX AGE 11, malik fundoplication, left breast biopsy, oral surgery Past Anesthesia/Blood Transfusion Reactions: Motion Sickness, Postoperative Nausea & Vomiting (PONV) Past Psychological History: Anxiety Smoking Status: Former smoker Past Alcohol Use History: Rare Past Drug Use History: None Reported - Past Family History Sister(s) Family Medical History: Cancer Additional Family Medical History / Comment(s): melanoma General Exam Limitations: no limitations General appearance: alert, in no apparent distress Head exam: Present: atraumatic Eye exam: Present: normal appearance, PERRL, EOMI (No pain with extraocular movements), periorbital swelling (Minimal erythema and edema inferior to the right eye), other (No proptosis or chemosis of the right eye). Absent: scleral icterus, conjunctival injection ENT exam: Present: normal exam, mucous membranes moist, other (No pain with palpation of the maxillary or frontal sinuses) Neck exam: Present: normal inspection, full ROM. Absent: tenderness Respiratory exam: Present: normal lung sounds bilaterally. Absent: respiratory distress, wheezes Cardiovascular Exam: Present: regular rate, normal rhythm, normal heart sounds Course Vital Signs 10/24/21 15:19 Temperature 97.9 F Pulse Rate 84 Respiratory 18 Rate Blood Pressure 179/84 O2 Sat by Pulse 98 Oximetry Medical Decision Making - Medical Decision Making Vitals are stable. Patient is well-appearing. Fluorescein stain and Wood's lamp were used to visualize the right eye. no dendritic lesions or corneal abrasions. She does have some minimal erythema inferior to the right eye. No visual changes. At this point suspect a preseptal cellulitis. No evidence of orbital cellulitis as she does not have any pain with extraocular movements, visual changes, proptosis, or chemosis. We will treat her with Augmentin. She is currently on Cipro for kidney stone so she will discontinue this as Augmentin has good urinary coverage. We will also do erythromycin as she is having some slight drainage from the right eye although that is not evident at the time of exam. Patient will be discharged to follow up with primary care. We will also give her ophthalmology follow-up if she cannot get into primary care. She will return here for any worsening symptoms which were discussed in depth with her. Disposition Clinical Impression: Preseptal cellulitis Disposition: HOME SELF-CARE Condition: Good Instructions (If sedation given, give patient instructions): Periorbital Cellulitis in Adults (ED) Additional Instructions: Please discontinue Cipro. Take Augmentin instead. Follow-up with your doctor. If you cannot get into your doctor you can try to follow up with ophthalmology, Dr Wilson. Return to the emergency room for any worsening symptoms. Prescriptions: Amoxicillin/Potassium Clav [Augmentin 875-125 Tablet] 1 tab PO Q12HR #20 tab Erythromycin Ophth Oint [Romycin Ophth Oint] 1 applic RIGHT EYE QID 7 Days #1 gm Is patient prescribed a controlled substance at d/c from ED?: No Referrals: Ross Donaldson MD [Primary Care Provider] - 1-2 days Huber Wilson MD [STAFF PHYSICIAN] - 1-2 days Time of Disposition: 18:18
== END 2021-10-24 18:36 | disposition home or self-care (01) ==
LOC: EC 14:20
DX: L03.213 Periorbital cellulitis (principal); J45.909 Unspecified asthma, uncomplicated; I10 Essential (primary) hypertension; Z79.899 Other long term (current) drug therapy; Z87.891 Personal history of nicotine dependence; Z88.8 Allergy status to other drugs, medicaments and biological substances
CPT/HCPCS: 99283

== ENCOUNTER → 2022-03-11 | Outpatient (CLI) | payer OTHER ==
--- NOTE | 2022-03-12 12:18 | MM ---
Reason for exam: screening (asymptomatic). Last mammogram was performed 1 year and 2 months ago. History: Patient is postmenopausal. Benign MG stereo VAD BX LT of the left breast, August 31, 2019. Benign excisional biopsy of the left breast, 2013. Took estrogen for 1 year beginning at age 43. Physical Findings: A clinical breast exam by your physician is recommended on an annual basis and results should be correlated with mammographic findings. MG 3D Screening Mammo W/Cad Bilateral CC and MLO view(s) were taken. Prior study comparison: January 05, 2021, bilateral MG diagnostic mammo w CAD [place]. July 04, 2020, left breast MG diagnostic mammo LT w CAD. August 08, 2019, left breast MG 3d work up w/cad LT. July 20, 2019, bilateral MG 3d screening mammo w/cad. There are scattered fibroglandular densities. There are benign appearing round calcifications bilaterally. Previous mammotome biopsy in the left breast x 2. There is chronic nodularity in the left breast. There is no discrete abnormality. ASSESSMENT: Benign, BI-RAD 2 RECOMMENDATION: Routine screening mammogram of both breasts in 1 year.
== END | disposition home or self-care (01) ==
LOC: RADMAMWWP 11:38
PROVIDERS: ATTEND Family Medicine
DX: Z12.31 Encounter for screening mammogram for malignant neoplasm of breast (principal)
CPT/HCPCS: 77063; 77067

== ENCOUNTER 2023-04-07 08:53 | Day surgery (SDC) | payer OTHER ==
[2023-04-05 11:53] VITALS: BMI 29.2
[~2023-04-07 08:53] MED LIST changes: +LACTATED RINGERS 1,000 ML IV SCH; -LIDOCAINE 1% (10MG/ML) FOR IV START INTRADERMA PRN
[2023-04-07 09:57] VITALS: RESP 16; TEMP 97
[2023-04-07] MEDS ORDERED: ONDANSETRON 4 MG/2 ML VIAL IVP ONE (09:59)
[2023-04-07] MEDS ORDERED: LIDOCAINE 1% (10MG/ML) FOR IV START INTRADERMA ONE (10:00)
[2023-04-07] MEDS ORDERED: ONDANSETRON 4 MG/2 ML VIAL ONE (10:03)
[2023-04-07] MEDS ORDERED: LIDOCAINE 2% INJ 20 MG/ML (2 ML VIAL) ONE (11:27)
[2023-04-07] MEDS ORDERED: PROPOFOL 10 MG/ML 20 ML VIAL IV ONE (11:27)
--- NOTE | 2023-04-07 11:30 | P.GSHP ---
History of Present Illness H&P Date: 04/07/23 Chief Complaint: GERD, GI bleed This a 62-year-old female presents today for EGD and colonoscopy. Patient history of GERD and GI bleed. Past Medical History Past Medical History: Asthma, CVA/TIA, GERD/Reflux, Hypertension, Osteoarthritis (OA), Skin Disorder, Sleep Apnea/CPAP/BIPAP Additional Past Medical History / Comment(s): Recent flare up of allergies, had Cortisone shot. Migraines, ? CVA/TIA (1999), seasonal allergies, hx hiatal hernia with surgery, IBS, osteoporosis, eczema, kidney stones, sleep apnea (no machine), hx anemia, states constipation with hemorrhoids and blood in stool. History of Any Multi-Drug Resistant Organisms: None Reported Past Surgical History: Breast Surgery, Section, Cholecystectomy, Hysterectomy, Tonsillectomy, Tubal Ligation Additional Past Surgical History / Comment(s): TEAR DUCT SURGERY, RIGHT EYE SURGERY, malik fundoplication, left breast biopsy, oral surgery, EGD, COLONOSCOPY. Past Anesthesia/Blood Transfusion Reactions: Motion Sickness, Postoperative Nausea & Vomiting (PONV) Past Psychological History: No Psychological Hx Reported Smoking Status: Former smoker Past Alcohol Use History: Occasional Additional Past Alcohol Use History / Comment(s): QUIT SMOKING IN 1999, smoked for 20-25 yrs on and off. Past Drug Use History: None Reported - Past Family History Sister(s) Family Medical History: Cancer Additional Family Medical History / Comment(s): Melanoma. Medications and Allergies Home Medications Medication Instructions Recorded Confirmed Type Cetirizine HCl [Zyrtec] 10 mg PO DAILY 08/03/17 04/07/23 History Albuterol Inhaler [Ventolin Hfa 1 - 2 puff INHALATION DIRECTED 09/29/17 04/07/23 History Inhaler] PRN Biotin [Biotin Disolve] 10,000 mcg PO DAILY 10/06/17 04/07/23 History amLODIPine BESYLATE [Norvasc] 5 mg PO 192908/20/19 04/07/23 History L.acidoph,Paracasei, B.lactis 1 each PO DAILY 05/26/21 04/07/23 History [Probiotic] Olopatadine HCl [Pataday] 1 drop BOTH EYES DAILY 05/26/21 04/07/23 History Aspirin [Adult Low Dose Aspirin EC] 81 mg PO DAILY 02/24/23 04/07/23 History Beclomethasone Dipropionate [Qvar 1 puff INHALATION DIRECTED PRN 02/24/23 04/07/23 History 40 mcg Redihaler] Black Cohosh Root Extract 40 mg PO DAILY 02/24/23 04/07/23 History [Remifemin Menopause] Dry Eye Relief Gtts 1 drop BOTH EYES DIRECTED PRN 02/24/23 04/07/23 History Loteprednol Etabonate [Alrex] 1 drop BOTH EYES BID 02/24/23 04/07/23 History Rizatriptan Benzoate [Maxalt] 10 mg PO DAILY PRN 02/24/23 04/07/23 History Naproxen Sodium [Aleve] 220 mg PO DAILY PRN 04/05/23 04/07/23 History Allergies Allergy/AdvReac Type Severity Reaction Status Date / Time prednisone AdvReac MIGRAINE Verified 04/07/23 09:57 Surgical - Exam Vital Signs Temp Pulse Resp BP Pulse Ox 97.0 F L 79 16 158/82 97 04/07/23 09:55 04/07/23 09:55 04/07/23 09:55 04/07/23 09:55 04/07/23 09:55 - General well developed, well nourished, no distress - Eyes PERRL - ENT normal pinna - Neck no masses - Respiratory normal expansion - Cardiovascular Rhythm: regular - Abdomen Abdomen: soft, non tender Assessment and Plan Assessment: GERD, GI bleed. We'll perform and colonoscopy.
--- NOTE | 2023-04-07 11:50 | P.OP ---
Date of Procedure: 04/07/23 Preoperative Diagnosis: GERD GI bleed Postoperative Diagnosis: Antral gastritis Small sliding hiatal hernia Mild esophagitis Tortuous colon Procedure(s) Performed: EGD Colonoscopy Anesthesia: MAC Surgeon: Navi Minor Pathology: other (Antrum, esophagus) Condition: stable Disposition: PACU Description of Procedure: The patient's placed on the endoscopy table in the lateral position. She received IV sedation. The gastroscope placed oropharynx passed in the esophagus into the stomach. Scope was then placed through the pylorus. The first and second portion of the duodenum appeared normal. Scope summer back the antrum this. Mildly inflamed. The scope was then retroflexed and the remainder the stomach appeared normal. There was a small sliding hiatal hernia. The GE junction was at 39 cm. The distal esophagus mildly inflamed. A biopsies performed. The proximal esophagus appeared normal. Next digital rectal exam was performed. This revealed no ebonized. Lescol scope was then placed patient anus and passed throughout the colon. The sigmoid colon was very tortuous. The scope could not be advanced safely due to tortuosity. This point scope withdrawn. A pediatric scope was then placed. The pediatric scope could not be placed beyond; sigmoid tortuosity of the bowel. This point scope withdrawn. Patient scheduled for a barium enema.
[2023-04-07 12:20] VITALS: BP 125/81; PULSE 71
--- NOTE | 2023-04-08 09:07 | XR ---
EXAMINATION TYPE: XR abdomen 1V DATE OF EXAM: 04/07/2023 3:31 PM CLINICAL HISTORY: Failed colonoscopy. 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 COMPARISON: Abdominal x-ray October 21, 2021. FINDINGS: Gas prominence throughout small and large bowel loops is identified. Scattered tiny pelvic phleboliths are redemonstrated. Cholecystectomy clip is redemonstrated. Possible new left-sided 7 mm left renal calculus upper pole level. Osseous structures are intact. IMPRESSION: Barium enema study canceled due to gaseous prominence within small and large bowel loops which would make enema study difficult.
== END 2023-04-07 12:40 | disposition home or self-care (01) ==
LOC: ORWHC2ENDO 08:53
PROVIDERS: ATTEND Surgery
DX: K29.50 Unspecified chronic gastritis without bleeding (principal); K21.00 Gastro-esophageal reflux disease with esophagitis, without bleeding; K64.4 Residual hemorrhoidal skin tags; K44.9 Diaphragmatic hernia without obstruction or gangrene; K56.2 Volvulus; J45.909 Unspecified asthma, uncomplicated; K21.9 Gastro-esophageal reflux disease without esophagitis; I10 Essential (primary) hypertension; M19.90 Unspecified osteoarthritis, unspecified site; Z87.442 Personal history of urinary calculi; Z98.891 History of uterine scar from previous surgery; Z90.49 Acquired absence of other specified parts of digestive tract; Z90.710 Acquired absence of both cervix and uterus; Z90.89 Acquired absence of other organs; Z98.51 Tubal ligation status; Z87.891 Personal history of nicotine dependence; Z86.59 Personal history of other mental and behavioral disorders; Z86.73 Personal history of transient ischemic attack (TIA), and cerebral infarction without residual deficits; Z80.8 Family history of malignant neoplasm of other organs or systems; Z79.51 Long term (current) use of inhaled steroids; Z79.82 Long term (current) use of aspirin; Z88.8 Allergy status to other drugs, medicaments and biological substances; Z79.899 Other long term (current) drug therapy
CPT/HCPCS: 74018; 43239; 45330; J2405; J2704; J2001; 88305

== ENCOUNTER → 2023-09-16 | Outpatient (CLI) | payer OTHER ==
--- NOTE | 2023-09-19 07:33 | MM ---
Reason for Exam: Screening (asymptomatic). Last mammogram was performed 1 year(s) and 6 month(s) ago. Patient History: Menarche at age 13. First Full-Term at age 20. Right ovary removed at age 36. Hysterectomy at age 36. Postmenopausal. Estrogen, starting at age 43 for 1 year. 2013, Benign Excisional Biopsy on the left side. 08/31/2019, Benign Core Biopsy on the left side. Risk Values: Dolores 5 year model risk: 1.2%. NCI Lifetime model risk: 5.7%. Prior Study Comparison: 07/04/2020 Left Diagnostic Mammogram, [facility]. 01/05/2021 Bilateral Diagnostic Mammogram, [facility]. 03/11/2022 Bilateral Screening Mammogram, [facility]. Tissue Density: There are scattered fibroglandular densities. Findings: Analyzed By CAD. There is no suspicious group of microcalcifications or new suspicious mass in either breast. Previous mammotome biopsy in the left breast x2. Chronic nodularity within the left breast. Benign appearing round calcification bilaterally. Overall Assessment: Benign, BI-RAD 2 Management: Screening Mammogram of both breasts in 1 year. A clinical breast exam by your physician is recommended on an annual basis and results should be correlated with mammographic findings. Note on Dolores scores and lifetime risk: 1. A Dolores score greater than 3% is considered moderate risk. If this is the case, consider specialist referral to assess eligibility for a risk reducing agent. If overall lifetime risk for the development of breast cancer is 20% or higher, the patient may qualify for future screening with alternating mammogram and breast MRI. Electronically signed and approved by: Shaggy Watts D.O.
== END | disposition home or self-care (01) ==
LOC: RADMAMWWP 12:56
PROVIDERS: ATTEND Family Medicine
DX: Z12.31 Encounter for screening mammogram for malignant neoplasm of breast (principal); Z78.0 Asymptomatic menopausal state
CPT/HCPCS: 77063; 77067

== ENCOUNTER → 2023-11-11 | Outpatient (CLI) | payer OTHER ==
--- NOTE | 2023-11-11 12:47 | FL ---
EXAMINATION TYPE: FL barium swallow DATE OF EXAM: 11/11/2023 11:14 AM COMPARISON: 05/27/2021 CLINICAL INDICATION:Female, 63 years old with history of R13.10 dysphagia; PHH, TECHNIQUE: The procedure was explained and patient history elicited. All patient questions were ans wered prior to start of procedure. Multiple spot fluoroscopic images of the esophagus were obtained a fter the oral ingestion of effervescent crystals and liquid barium as the contrast agent. Fluoroscopic time: 37 sec Fluoroscopic images: 0 Radiographs taken: 41 DAP: 93 mGym2 FINDINGS: Postsurgical changes to the gastroesophageal junction. The esophagus demonstrates normal primary and secondary peristalsis. Few scattered tertiary contractions with minimal retrograde flow of contrast. The esophageal mucosa is smooth without evidence of focal stricture, ulceration, or abnormal outpouc yobany. No gastroesophageal reflux disease was identified. IMPRESSION: Mild esophageal dysmotility without evidence for hernia or reflux
== END | disposition home or self-care (01) ==
LOC: RADFLWHC 10:37
PROVIDERS: ATTEND Surgery Plastic and Reconstructive Surgery
DX: K22.4 Dyskinesia of esophagus (principal); R13.10 Dysphagia, unspecified
CPT/HCPCS: 74220

== ENCOUNTER 2024-05-17 18:25 | Emergency (ER) | payer OTHER ==
[2024-05-17] MEDS: SODIUM CHLORIDE 0.9% 1,000 ML IV STA (20:10)
[2024-05-17] MEDS: MORPHINE SULFATE 4 MG/ML SYRINGE IVP STA ×2 (20:10→22:30)
[2024-05-17] MEDS: ONDANSETRON 4 MG/2 ML VIAL IVP STA (20:10)
[2024-05-17 20:38] LABS: Basophils # (A) 0.1 k/uL (0-0.2); Basophils % (A) 1 %; Eosinophils # (A) 0.3 k/uL (0-0.7); Eosinophils % (A) 2 %; HGB 14.8 gm/dL (11.4-16.0); Lymphocytes # (A) 2.4 k/uL (1.0-4.8); Lymphocytes % (A) 20 %; MCH 26.1 pg (25.0-35.0); MCHC 31.6 g/dL (31.0-37.0); MCV 82.7 fL (80.0-100.0); Mean Platelet Volume 8.2; Monocytes # (A) 0.9 k/uL (0-1.0); Monocytes % (A) 7 %; Neutrophils # (A) 8.2 k/uL (1.3-7.7); Neutrophils % (A) 68 %; Platelet Count 385 k/uL (150-450); RBC 5.69 m/uL (3.80-5.40); WBC 12.2 k/uL (3.8-10.6)
--- NOTE | 2024-05-17 20:38 | CT ---
EXAMINATION TYPE: CT abdomen pelvis wo con CT DLP: 485.1 mGycm, Automated exposure control for dose reduction was used. DATE OF EXAM: 05/17/2024 8:27 PM COMPARISON: CT abdomen pelvis most recent from 04/30/2021 CLINICAL INDICATION:Female, 63 years old with history of abdominal pain; LLQ abdominal pain TECHNIQUE: Axial CT of the abdomen and pelvis. Sagittal and coronal reformats were created on a [employer] workstation. Contrast used: (none if empty) Oral contrast used: without Oral Contrast (none if empty) FINDINGS: LOWER CHEST: Unremarkable ABDOMEN LIVER: Diffuse hypoattenuation of the liver parenchyma. GALLBLADDER AND BILE DUCTS: The gallbladder surgically absent. No evidence of biliary duct dilation. PANCREAS: Unremarkable. SPLEEN: Unremarkable. ADRENAL GLANDS: Unremarkable. KIDNEYS AND URETERS: The right kidney and ureter are unremarkable. Multiple left renal calculi identified, the left ureter is mildly dilated with a 4 mm calculus identi fied involving the mid ureter, approximately 6.5 cm from the renal pelvis. PELVIS BLADDER: Unremarkable REPRODUCTIVE: Unremarkable. ABDOMEN & PELVIS STOMACH AND BOWEL: Stomach and duodenum are unremarkable. No evidence of bowel obstruction. PERITONEUM/RETROPERITONEUM: No evidence of pneumoperitoneum or free fluid. VASCULATURE: Mild atherosclerotic calcifications are present throughout the abdominal aorta and its b ranches. No evidence of aortic aneurysm. MUSCULOSKELETAL: No acute osseous abnormalities. Mild disc degeneration changes are present throughou t the thoracolumbar spine. LYMPH NODES: No gross evidence for lymphadenopathy. SOFT TISSUE/ABDOMINAL WALL: Unremarkable IMPRESSION: 1. Obstructing 6 mm left mid ureteral calculus creating mild hydronephrosis. 2. Hepatic steatosis.
[2024-05-17 20:49] LABS: Appearance,Urine Clear (Clear); Bacteria,Urine Occasional /hpf; Bilirubin,Urine Negative (Negative); Blood,Urine Large (Negative); Color,Urine Colorless; Glucose,Urine (UA) Negative (Negative); Ketones,Urine Negative (Negative); Leukocyte Esterase,Urine Negative (Negative); Mucus,Urine Rare /hpf; Nitrite,Urine Negative (Negative); PH, Urine 6.5 (5.0-8.0); Protein,Urine Negative (Negative); RBC,Urine 76 /hpf (0-5); Specific Gravity,Urine 1.005 (1.001-1.035); Urobilinogen,Urine <2.0 mg/dL (<2.0); WBC,Urine 4 /hpf (0-5)
[2024-05-17 21:13] LABS: ALT 21 U/L (4-34); AST 27 U/L (14-36); African American GFR (CKD) >90 (>60 ml/min/1.73 sqM); Albumin 4.4 g/dL (3.5-5.0); Alkaline Phosphatase 140 U/L (38-126); Anion Gap 7 mmol/L; Blood Urea Nitrogen 14 mg/dL (7-17); Calcium 9.3 mg/dL (8.4-10.2); Carbon Dioxide 28 mmol/L (22-30); Chloride 103 mmol/L (98-107); Glucose 84 mg/dL (74-99); Lipase 63 U/L (23-300); Non-African American GFR(CKD) >90 (>60 ml/min/1.73 sqM); Sodium 138 mmol/L (137-145); Total Bilirubin 1.6 mg/dL (0.2-1.3); Total Protein 7.6 g/dL (6.3-8.2)
--- NOTE | 2024-05-17 22:18 | ED ---
Abdominal Pain HPI - General Chief Complaint: Abdominal Pain Time Seen by Provider: 05/17/24 18:35 Source: patient Mode of arrival: ambulatory Limitations: no limitations - History of Present Illness Initial Comments: 63-year-old female presents emergency department reporting to left-sided flank pain and bleeding with urination. Symptoms started yesterday. She admits to history of similar in the past. She does have kidney stones. She denies dysuria. No difficulty voiding. She denies any changes in her bowel habits to include diarrhea, constipation, black or bloody stools. Admits nausea without vomiting. Patient is status post hysterectomy. She is using NSAIDs for pain at home. No other alleviating, precipitating or modifying factors - Related Data Home Medications Medication Instructions Recorded Confirmed Cetirizine HCl [Zyrtec] 10 mg PO DAILY 08/03/17 04/07/23 Albuterol Inhaler [Ventolin Hfa 1 - 2 puff INHALATION DIRECTED 09/29/17 04/07/23 Inhaler] PRN Biotin [Biotin Disolve] 10,000 mcg PO DAILY 10/06/17 04/07/23 amLODIPine BESYLATE [Norvasc] 5 mg PO 0 08/20/19 04/07/23 L.acidoph,Paracasei, B.lactis 1 each PO DAILY 05/26/21 04/07/23 [Probiotic] Olopatadine HCl [Pataday] 1 drop BOTH EYES DAILY 05/26/21 04/07/23 Aspirin [Adult Low Dose Aspirin EC] 81 mg PO DAILY 02/24/23 04/07/23 Beclomethasone Dipropionate [Qvar 1 puff INHALATION DIRECTED PRN 02/24/23 04/07/23 40 mcg Redihaler] Black Cohosh Root Extract 40 mg PO DAILY 02/24/23 04/07/23 [Remifemin Menopause] Dry Eye Relief Gtts 1 drop BOTH EYES DIRECTED PRN 02/24/23 04/07/23 Loteprednol Etabonate [Alrex] 1 drop BOTH EYES BID 02/24/23 04/07/23 Rizatriptan Benzoate [Maxalt] 10 mg PO DAILY PRN 02/24/23 04/07/23 Naproxen Sodium [Aleve] 220 mg PO DAILY PRN 04/05/23 04/07/23 Previous Rx's Medication Instructions Recorded Cephalexin [Keflex] 500 mg PO Q12HR 1 Days #14 cap 05/17/24 HYDROcodone/APAP 7.5-325MG [[place] 1 tab PO Q4HR PRN 3 Days #18 tab 05/17/24 7.5-325] Ketorolac [Toradol] 10 mg PO Q8HR #15 tab 05/17/24 Ondansetron Odt [Zofran Odt] 4 mg PO Q8HR PRN #20 tab 05/17/24 Tamsulosin [Flomax] 0.4 mg PO DAILY #7 cap 05/17/24 Allergies Allergy/AdvReac Type Severity Reaction Status Date / Time prednisone AdvReac MIGRAINE Verified 05/17/24 18:34 Review of Systems ROS Statement: Those systems with pertinent positive or pertinent negative responses have been documented in the HPI. ROS Other: All systems not noted in ROS Statement are negative. Past Medical History Past Medical History: Asthma, CVA/TIA, GERD/Reflux, Hypertension, Osteoarthritis (OA), Skin Disorder, Sleep Apnea/CPAP/BIPAP Additional Past Medical History / Comment(s): Recent flare up of allergies, had Cortisone shot. Migraines, ? CVA/TIA (1999), seasonal allergies, hx hiatal hernia with surgery, IBS, osteoporosis, eczema, kidney stones, sleep apnea (no machine), hx anemia, states constipation with hemorrhoids and blood in stool. History of Any Multi-Drug Resistant Organisms: None Reported Past Surgical History: Breast Surgery, Section, Cholecystectomy, Hysterectomy, Tonsillectomy, Tubal Ligation Additional Past Surgical History / Comment(s): TEAR DUCT SURGERY, RIGHT EYE SURGERY, malik fundoplication, left breast biopsy, oral surgery, EGD, COLONOSCOPY. Past Anesthesia/Blood Transfusion Reactions: Motion Sickness, Postoperative Nausea & Vomiting (PONV) Past Psychological History: No Psychological Hx Reported Smoking Status: Former smoker Past Alcohol Use History: Occasional Past Drug Use History: None Reported - Past Family History Sister(s) Family Medical History: Cancer Additional Family Medical History / Comment(s): Melanoma. General Exam Limitations: no limitations General appearance: alert, in no apparent distress Head exam: Present: atraumatic, normocephalic, normal inspection Eye exam: Present: normal appearance, PERRL, EOMI. Absent: scleral icterus, conjunctival injection, periorbital swelling ENT exam: Present: normal exam, mucous membranes moist Neck exam: Present: normal inspection. Absent: tenderness, meningismus, lymphadenopathy Respiratory exam: Present: normal lung sounds bilaterally. Absent: respiratory distress, wheezes, rales, rhonchi, stridor Cardiovascular Exam: Present: regular rate, normal rhythm, normal heart sounds. Absent: systolic murmur, diastolic murmur, rubs, gallop, clicks GI/Abdominal exam: Present: soft, normal bowel sounds. Absent: distended, tenderness, guarding, rebound, rigid Extremities exam: Present: normal inspection, full ROM, normal capillary refill. Absent: tenderness, pedal edema, joint swelling, calf tenderness Back exam: Present: normal inspection Neurological exam: Present: alert, oriented X3, CN II-XII intact Psychiatric exam: Present: normal affect, normal mood Skin exam: Present: warm, dry, intact, normal color. Absent: rash Course Vital Signs 05/17/24 05/17/24 05/17/24 18:29 19:51 22:44 Temperature 97.8 F 97.6 F Pulse Rate 88 89 90 Respiratory 18 18 16 Rate Blood Pressure 131/84 157/95 98/66 O2 Sat by Pulse 98 95 94 L Oximetry Medical Decision Making - Medical Decision Making Was pt. sent in by a medical professional or institution ([facility], [facility], urgent care, hospital, or prison...) When possible be specific @ -No Did you speak to anyone other than the patient for history (EMS, parent, family, police, friend...)? What history was obtained from this source @ -No Did you review nursing and triage notes (agree or disagree)? Why? @ -I reviewed and agree with nursing and triage notes Were old charts reviewed (outside hosp., previous admission, EMS record, old EKG, old radiological studies, urgent care reports/EKG's, prison records)? Report findings @ -No old charts were reviewed Differential Diagnosis (chest pain, altered mental status, abdominal pain women, abdominal pain men, vaginal bleeding, weakness, fever, dyspnea, syncope, headache, dizziness, GI bleed, back pain, seizure, CVA, palpatations, mental health, musculoskeletal)? @ -Differential Abdominal Pain Women: Appendicitis, Cholecystitis, diverticulosis, ischemic bowel, pancreatitis, hepatitis, UTI, gastroenteritis, AAA, incarcerated hernia, bowel obstruction, constipation, inflammatory bowel, hepatitis, peptic ulcer disease, splenic infarction, perforated viscus, vulvitis, ovarian torsion, PID, kidney stone, placenta abruption, this is not meant to be an all-inclusive list EKG interpreted by me (3pts min.). @ -Not done X-rays interpreted by me (1pt min.). @ -None done CT interpreted by me (1pt min.). @ -Yes and demonstrates left-sided ureteral stone U/S interpreted by me (1pt. min.). @ -None done What testing was considered but not performed or refused? (CT, X-rays, U/S, labs)? Why? @ -None What meds were considered but not given or refused? Why? @ -None Did you discuss the management of the patient with other professionals (professionals i.e. , PA, [facility] [facility], lab, RT, psych nurse, criminal justice social worker, cassandra consultant, teacher, labor relations officer, insurance case manager)? Give summary @ -No Was smoking cessation discussed for >3mins.? @ -No Was critical care preformed (if so, how long)? @ -No Were there social determinants of health that impacted care today? How? (Homelessness, low income, unemployed, alcoholism, drug addiction, transportation, low edu. Level, literacy, decrease access to med. care, [facility], rehab)? @ -No Was there de-escalation of care discussed even if they declined (Discuss DNR or withdrawal of care, Hospice)? DNR status @ -No What co-morbidities impacted this encounter? (DM, HTN, Smoking, COPD, CAD, Cancer, CVA, ARF, Chemo, Hep., AIDS, mental health diagnosis, sleep apnea, morbid obesity)? @ -None Was patient admitted / discharged? Hospital course, mention meds given and route, prescriptions, significant lab abnormalities, going to OR and other pertinent info. @ -Upon arrival patient seen and evaluated in hallway 19. Thorough history and physical exam was performed. IV access was established. Laboratory studies are conducted. Patient does receive pain medications. CT performed which demonstrates ureteral stone on the left. Patient reevaluated and states her pain is controlled. At this time she will be discharged home. She will be placed on pain medications and Flomax. Patient is to take the medications as directed. Follow-up with urology office. Strain all of her urine. Drink plenty of fluids. Return for any new or worsening symptoms including uncontrolled pain and fevers. Patient agreeable to this and was discharged in stable condition Undiagnosed new problem with uncertain prognosis? @ -No Drug Therapy requiring intensive monitoring for toxicity (Heparin, Nitro, Insulin, Cardizem)? @ -No Were any procedures done? @ -No Diagnosis/symptom? @ -Acute left flank pain, acute left ureteral stone Acute, or Chronic, or Acute on Chronic? @ -Acute Uncomplicated (without systemic symptoms) or Complicated (systemic symptoms)? @ -Complicated Side effects of treatment? @ -No Exacerbation, Progression, or Severe Exacerbation? @ -No Poses a threat to life or bodily function? How? (Chest pain, [place], ME, pneumonia, PE, COPD, DKA, ARF, appy, cholecystitis, CVA, Diverticulitis, Homicidal, Suicidal, threat to staff... and all critical care pts) @ -No - Lab Data Result diagrams: 05/17/24 20:02 05/17/24 20:02 Lab Results 05/17/24 05/17/24 05/17/24 Range/Units 20:02 20:02 20:07 WBC 12.2 H (3.8-10.6) k/uL RBC 5.69 H (3.80-5.40) m/uL Hgb 14.8 (11.4-16.0) gm/dL Hct 47.0 H (34.0-46.0) % MCV 82.7 (80.0-100.0) fL MCH 26.1 (25.0-35.0) pg MCHC 31.6 (31.0-37.0) g/dL RDW 14.0 (11.5-15.5) % Plt Count 385 (150-450) k/uL MPV 8.2 Neutrophils % 68 % Lymphocytes % 20 % Monocytes % 7 % Eosinophils % 2 % Basophils % 1 % Neutrophils # 8.2 H (1.3-7.7) k/uL Lymphocytes # 2.4 (1.0-4.8) k/uL Monocytes # 0.9 (0-1.0) k/uL Eosinophils # 0.3 (0-0.7) k/uL Basophils # 0.1 (0-0.2) k/uL Sodium 138 (137-145) mmol/L Potassium 4.0 (3.5-5.1) mmol/L Chloride 103 (98-107) mmol/L Carbon Dioxide 28 (22-30) mmol/L Anion Gap 7 mmol/L BUN 14 (7-17) mg/dL Creatinine 0.62 (0.52-1.04) mg/dL Est GFR (CKD-EPI)AfAm >90 (>60 ml/min/1.73 sqM) Est GFR (CKD-EPI)NonAf >90 (>60 ml/min/1.73 sqM) Glucose 84 (74-99) mg/dL Plasma Lactic Acid Kamlesh 1.0 (0.7-2.0) mmol/L Calcium 9.3 (8.4-10.2) mg/dL Total Bilirubin 1.6 H (0.2-1.3) mg/dL AST 27 (14-36) U/L ALT 21 (4-34) U/L Alkaline Phosphatase 140 H (38-126) U/L Total Protein 7.6 (6.3-8.2) g/dL Albumin 4.4 (3.5-5.0) g/dL Lipase 63 (23-300) U/L Urine Color Urine Appearance (Clear) Urine pH (5.0-8.0) Ur Specific [place] (1.001-1.035) Urine Protein (Negative) Urine Glucose (UA) (Negative) Urine Ketones (Negative) Urine Blood (Negative) Urine Nitrite (Negative) Urine Bilirubin (Negative) Urine Urobilinogen (<2.0) mg/dL Ur Leukocyte Esterase (Negative) Urine RBC (0-5) /hpf Urine WBC (0-5) /hpf Urine Bacteria (None) /hpf Urine Mucus (None) /hpf 05/17/24 Range/Units 20:09 WBC (3.8-10.6) k/uL RBC (3.80-5.40) m/uL Hgb (11.4-16.0) gm/dL Hct (34.0-46.0) % MCV (80.0-100.0) fL MCH (25.0-35.0) pg MCHC (31.0-37.0) g/dL RDW (11.5-15.5) % Plt Count (150-450) k/uL MPV Neutrophils % % Lymphocytes % % Monocytes % % Eosinophils % % Basophils % % Neutrophils # (1.3-7.7) k/uL Lymphocytes # (1.0-4.8) k/uL Monocytes # (0-1.0) k/uL Eosinophils # (0-0.7) k/uL Basophils # (0-0.2) k/uL Sodium (137-145) mmol/L Potassium (3.5-5.1) mmol/L Chloride (98-107) mmol/L Carbon Dioxide (22-30) mmol/L Anion Gap mmol/L BUN (7-17) mg/dL Creatinine (0.52-1.04) mg/dL Est GFR (CKD-EPI)AfAm (>60 ml/min/1.73 sqM) Est GFR (CKD-EPI)NonAf (>60 ml/min/1.73 sqM) Glucose (74-99) mg/dL Plasma Lactic Acid Kamlesh (0.7-2.0) mmol/L Calcium (8.4-10.2) mg/dL Total Bilirubin (0.2-1.3) mg/dL AST (14-36) U/L ALT (4-34) U/L Alkaline Phosphatase (38-126) U/L Total Protein (6.3-8.2) g/dL Albumin (3.5-5.0) g/dL Lipase (23-300) U/L Urine Color Colorless Urine Appearance Clear (Clear) Urine pH 6.5 (5.0-8.0) Ur Specific [place] 1.005 (1.001-1.035) Urine Protein Negative (Negative) Urine Glucose (UA) Negative (Negative) Urine Ketones Negative (Negative) Urine Blood Large H (Negative) Urine Nitrite Negative (Negative) Urine Bilirubin Negative (Negative) Urine Urobilinogen <2.0 (<2.0) mg/dL Ur Leukocyte Esterase Negative (Negative) Urine RBC 76 H (0-5) /hpf Urine WBC 4 (0-5) /hpf Urine Bacteria Occasional H (None) /hpf Urine Mucus Rare H (None) /hpf Disposition Clinical Impression: Ureteral stone with hydronephrosis, Hematuria Disposition: HOME SELF-CARE Condition: Stable Instructions (If sedation given, give patient instructions): Kidney Stones (ED) Additional Instructions: Please alternate taking the [place] with the Toradol every 4 hours. Start the antibiotics tomorrow. Use the Zofran if needed for nausea. Take the Flomax daily. Strain all of your urine. If you have uncontrolled pain, develop a fever or stop urinating, return to the emergency department Prescriptions: Tamsulosin [Flomax] 0.4 mg PO DAILY #7 cap Cephalexin [Keflex] 500 mg PO Q12HR 1 Days #14 cap HYDROcodone/APAP 7.5-325MG [[place] 7.5-325] 1 tab PO Q4HR PRN 3 Days #18 tab PRN Reason: Pain Ketorolac [Toradol] 10 mg PO Q8HR #15 tab Ondansetron Odt [Zofran Odt] 4 mg PO Q8HR PRN #20 tab PRN Reason: Nausea Is patient prescribed a controlled substance at d/c from ED?: Yes When asked, does pt state using other controlled substances?: No If prescribed controlled substance>3 days was MAPS reviewed?: Prescribed <3 Days If opioid is for acute pain is fill amount 7 days or less?: Yes Referrals: Ross Donaldson MD [Primary Care Provider] - 1-2 days Juan Alberto Pedro MD [STAFF PHYSICIAN] - 1-2 days Time of Disposition: 22:17
[2024-05-17] MEDS: KETOROLAC 15 MG/ML 1 ML VIAL IVP STA (22:26)
[2024-05-17] MEDS: TAMSULOSIN 0.4 MG CAP.ER.24H PO STA (22:28)
[2024-05-17] MEDS: cefTRIAXone IN SWFI 1,000 MG/10 ML SYRINGE IVP STA (22:31)
[2024-05-17] MEDS: ONDANSETRON 4 MG ODT STARTER PACK 2 TAB BTL PO STA (22:34)
[2024-05-17] MEDS: ACET/COD 300 MG/30 MG STARTER PACK 6 TAB BTL PO STA (22:36)
[2024-05-17 22:49] VITALS: BP 98/66; PULSE 90; RESP 16; TEMP 97.6
== END 2024-05-17 22:55 | disposition home or self-care (01) ==
LOC: EC 18:25
DX: N13.2 Hydronephrosis with renal and ureteral calculous obstruction (principal); Z87.891 Personal history of nicotine dependence; Z86.73 Personal history of transient ischemic attack (TIA), and cerebral infarction without residual deficits; Z88.8 Allergy status to other drugs, medicaments and biological substances
CPT/HCPCS: 36415; 80053; 83605; 83690; 85025; 81001; 74176; 99284; 96374; 96375 ×3; 96376; J2270; J2405; J0696; J1885; S0119